=== PATIENT | female | born 1945 | race Caucasian/White ===

== ENCOUNTER 2022-12-20 16:16 | Emergency (ER) | payer MEDICARE ==
[~2022-12-20] VITALS: Ht 162.6 cm; Wt 95.0 kg
[2022-12-20] VITALS (8 sets, daily range): BP systolic 125–144; BP diastolic 55–68
[2022-12-20 17:55] LABS: BASO% 0.4 % (0-3); EOS% 0.6 % (0-8); HEMATOCRIT 45.5 % (37.0-47.0); HEMOGLOBIN 14.3 g/dl (12.0-16.0); IMMATURE GRANULOCYTES 0.6 % (0.0-5.0); MEAN CELL VOLUME 94.4 fL CALC (80.0-100.0); MEAN CORPUSCULAR HGB 29.7 pG CALC (26.0-32.0); MEAN CORPUSCULAR HGB CONC 31.4 g/dL CAL (32.0-36.0); MONO% 9.4 % (2-13); NEUT# 8.05 thou/uL (2.00-7.15); RED BLOOD COUNT 4.82 mill/uL (4.20-5.60); RED CELL DISTRI WIDTH 13.2 % (11.5-15.5)
[2022-12-20] MEDS ORDERED: LIOTHYRONINE SO5 MCG PO (18:05)
[2022-12-20] MEDS ORDERED: LEVOTHYROXIN50 MCG PO (18:06)
[2022-12-20] MEDS ORDERED: VENLAFAXINE HC150 MG PO (18:06)
[2022-12-20] MEDS ORDERED: AMLODIPINE2.5 MG PO (18:06)
[2022-12-20] MEDS ORDERED: ASPIRINCHW 81MG PO (18:07)
[2022-12-20] MEDS ORDERED: HYDROCHLOROT25 MG PO (18:07)
[2022-12-20 18:09] LABS: ALBUMIN 4.4 g/dL (3.2-5.0); ALKALINE PHOSPHATASE 119 u/l (38-126); ANION GAP 11 (6-22 (CALC)); BILIRUBIN, TOTAL 0.4 mg/dL (0.02-1.3); BUN 19 mg/dL (8-23); BUN/CREATININE RATIO 25 (12-20 (CALC)); CARBON DIOXIDE 25 mmol/l (22-30); CHLORIDE 102 mmol/l (95-108); CREATININE 0.8 mg/dL (0.5-1.0); GFR FOR AFR.AMER. > 60 ML/MIN (>=60 (CALC)); GFR OTHER RACES > 60 ML/MIN (>=60 (CALC)); POTASSIUM 3.9 mmol/l (3.5-5.1); SGOT/AST 28 u/l (9-36); SODIUM 134 mmol/l (137-146); TOTAL PROTEIN 6.9 g/dL (6.3-8.2)
[2022-12-20] MEDS ORDERED: TIZANIDINE4 MG PO (18:09)
[2022-12-20] MEDS ORDERED: BRIMONIDINE0.2 % OD (18:10)
[2022-12-20] MEDS ORDERED: MEDDOSEPAK PO (18:37)
[2022-12-20] MEDS ORDERED: DICLOFENAC SODIUM1 % TD (18:37)
== END 2022-12-20 19:30 | disposition home or self-care (01) ==
LOC: ED 16:16
PROVIDERS: Nurse Practitioner
DX: M17.12 Unilateral primary osteoarthritis, left knee (principal); E03.9 Hypothyroidism, unspecified